=== PATIENT | male | born 1960 | race Hispanic/Latino ===

== ENCOUNTER 2017-05-31 09:49 | Day surgery (SDC) | payer BC ==
[2017-05-30 14:45] VITALS: BMI 27.5
[2017-05-31 11:31] VITALS: O2SAT 100
[2017-05-31] MEDS ORDERED: Propofol 10 mg/ml Inj (20 ML) ONE (11:31)
[2017-05-31 12:07] VITALS: TEMP 97.8
[2017-05-31 12:33] VITALS: BP 101/48; PULSE 67
[2017-05-31 13:01] VITALS: RESP 15
== END 2017-05-31 13:26 | disposition home or self-care (01) ==
LOC: C.ENDO 09:49
PROVIDERS: ATTEND Internal Medicine
DX: Z12.11 Encounter for screening for malignant neoplasm of colon (principal); K64.8 Other hemorrhoids
CPT/HCPCS: 45378; 82948; J2704